=== PATIENT | female | born 1960 | race Caucasian/White ===

== ENCOUNTER 2017-03-25 08:00 | Outpatient (RCR) | payer BC ==
[~2017-03-25 08:00] MED LIST: FERROUS GLUCONA27 MG PO; PROFERRIN ES12 MG PO; SYNTHROID 0.0.025 MG PO; SYNTHROID0.125 MG PO; ZOFRAN 4MG T4 MG/TAB PO
== END 2017-05-17 ==
LOC: MKS.ESL.PT
DX: M75.01 Adhesive capsulitis of right shoulder (principal)

== ENCOUNTER → 2017-09-23 | Outpatient (CLI) | payer BC | LOC: MC.RAD 09-22 07:20 | DX: Z12.31 Encounter for screening mammogram for malignant neoplasm of breast (principal) ==